=== PATIENT | male | born 1970 | race Asian ===

== ENCOUNTER → 2024-09-30 | Outpatient (CLI) | payer BC, MEDICAID ==
[2024-09-30 14:23] LABS: BASOPHILS % 0.3 % (0.0-2.0); EOSINOPHILS % 2.6 % (0.0-5.0); HEMATOCRIT. 50.1 % (42.0-52.0); HEMOGLOBIN. 16.4 g/dL (14.0-18.0); LYMPHOCYTES % 19.9 % (20.0-50.0); MEAN CORPUSCULAR HEMOGLOBIN 31.3 pg (28.0-32.0); MEAN CORPUSCULAR HGB CONC 32.8 g/dL (31.0-37.0); MEAN CORPUSCULAR VOLUME 95.4 fL (80.0-94.0); MEAN PLATELET VOLUME 9.2 fl (7.4-10.4); MONOCYTES % 10.2 % (2.0-8.0); PLATELET 168 x1000/uL (130-400); RED BLOOD CELL COUNT 5.25 mill/uL (4.7-6.1); RED CELL DISTRIBUTION WIDTH 13.2 % (11.6-14.6); WHITE BLOOD COUNT 6.5 x1000/uL (4.5-11.0)
[2024-09-30 14:26] LABS: CHLORIDE 109 mEq/L (98-107); POTASSIUM 4.5 mEq/L (3.5-5.1); SODIUM 143 mEq/L (136-145)
[2024-09-30 14:27] LABS: CARBON DIOXIDE 27 mEq/L (21-32)
[2024-09-30 14:32] LABS: CREATININE 1.1 mg/dL (0.6-1.3); GLUCOSE 124 mg/dL (70-105); TRIGLYCERIDE 94 mg/dL (0-150); UREA NITROGEN BLOOD 10 mg/dL (9-23); URIC ACID 7.9 mg/dL (3.7-9.2)
[2024-09-30 14:33] LABS: LDL CHOLESTEROL 87 mg/dL (5-100)
[2024-09-30 14:34] LABS: ALANINE AMINOTRANSFERASE 26 IU/L (10-49); ALBUMIN 4.2 g/dL (3.2-4.8); ASPARTATE AMINOTRANSFERASE 26 IU/L (<34); CHOLESTEROL 131 mg/dL (<200); HDL CHOLESTEROL 36 mg/dL (>55)
[2024-09-30 14:35] LABS: BILIRUBIN TOTAL 0.6 mg/dL (0.1-1.0); PROTEIN TOTAL 7.3 g/dL (6.0-8.3)
[2024-09-30 14:36] LABS: T4 FREE 1.13 ng/dL (0.89-1.76)
[2024-09-30 14:37] LABS: THYROID STIMULATING HORMONE 0.62 uIU/mL (0.55-4.78)
[2024-10-04 08:09] LABS: PROSTATE SPECIFIC AG TOTAL 0.5 ng/mL (0.0-4.0); PSA FREE 0.22 ng/mL
== END | disposition home or self-care (01) ==
LOC: LAB 13:35
PROVIDERS: ATTEND Internal Medicine
DX: Z13.0 Encounter for screening for diseases of the blood and blood-forming organs and certain disorders involving the immune mechanism (principal); Z13.1 Encounter for screening for diabetes mellitus; Z13.220 Encounter for screening for lipoid disorders; Z13.5 Encounter for screening for eye and ear disorders; Z13.29 Encounter for screening for other suspected endocrine disorder; E11.9 Type 2 diabetes mellitus without complications; E78.5 Hyperlipidemia, unspecified; H52.10 Myopia, unspecified eye; E66.9 Obesity, unspecified; Z72.0 Tobacco use
CPT/HCPCS: 36415; 80053; 80061; 83036; 84153; 84154; 84439; 84443; 84550; 85025

== ENCOUNTER 2025-01-05 03:42 | Inpatient (IN) | payer BC ==
[~2025-01-05] VITALS: Ht 170.2 cm; Wt 118.6 kg
[2025-01-05 04:44] LABS: BASOPHILS % 0.8 % (0.0-2.0); EOSINOPHILS % 3.3 % (0.0-5.0); HEMATOCRIT. 47.1 % (42.0-52.0); HEMOGLOBIN. 15.5 g/dL (14.0-18.0); LYMPHOCYTES % 34.3 % (20.0-50.0); MEAN CORPUSCULAR HEMOGLOBIN 31.6 pg (28.0-32.0); MEAN CORPUSCULAR HGB CONC 32.9 g/dL (31.0-37.0); MEAN PLATELET VOLUME 9.8 fl (7.4-10.4); MONOCYTES % 5.1 % (2.0-8.0); NEUTROPHILS % 56.5 % (40.0-76.0); PLATELET 190 x1000/uL (130-400); RED CELL DISTRIBUTION WIDTH 14.4 % (11.6-14.6); WHITE BLOOD COUNT 8.4 x1000/uL (4.5-11.0)
[2025-01-05] MEDS: ASPIRIN 81MG TABLET PO ONE (04:59)
[2025-01-05 05:09] LABS: CHLORIDE 103 mEq/L (98-107); POTASSIUM 3.8 mEq/L (3.5-5.1); SODIUM 139 mEq/L (136-145)
[2025-01-05 05:10] LABS: CALCIUM 9.1 mg/dL (8.7-10.4); CARBON DIOXIDE 26 mEq/L (21-32)
[2025-01-05 05:15] LABS: GLUCOSE 226 mg/dL (70-105); TROPONIN I HIGH SENSITIVITY 10 ng/L (3.0-53); UREA NITROGEN BLOOD 26 mg/dL (9-23)
[2025-01-05 05:43] LABS: CREATININE 1.5 mg/dL (0.6-1.3)
[2025-01-05] MEDS: SODIUM CHLORIDE 0.9% 1,000 ML IV ONE (06:19)
[2025-01-05 07:32] LABS: TROPONIN I HIGH SENSITIVITY 8 ng/L (3.0-53)
[2025-01-05 09:51] VITALS: BP 136/89; PULSE 75; RESP 18; TEMP 36.6
[2025-01-05] MEDS ORDERED: CLONIDINE 0.1MG TABLET PO PRN (10:00)
[2025-01-05] MEDS ORDERED: ONDANSETRON HCL 4MG/2ML INJ IV PRN (10:00)
[2025-01-05] MEDS ORDERED: ACETAMINOPHEN 325MG TABLET PO PRN (10:00)
[2025-01-05] MEDS ORDERED: ZOLPIDEM TARTRATE 5MG TABLET PO PRN (10:00)
[2025-01-05] MEDS ORDERED: HYDROCODONE/ACETAMINOPHEN 5/325MG TABLET PO PRN (10:00)
[2025-01-05] MEDS ORDERED: DEXT 5%/0.45% NACL 1000ML 1,000 ML IV SCH (10:00)
[2025-01-05] MEDS ORDERED: IPRATROPIUM/ALBUTEROL 0.5-3(2.5)MG/3ML NEB NEB PRN (10:00)
[2025-01-05] MEDS ORDERED: NALOXONE HCL 0.4MG/ML VIAL IV PRN (10:15)
[2025-01-05 12:00] VITALS: BP 122/84; PULSE 62; RESP 18; TEMP 36.6; O2SAT 98
[2025-01-05 12:05] LABS: *AMPHETAMINES SCREEN URINE NEGATIVE (NEGATIVE)
[2025-01-05 12:06] LABS: *BARBITURATES SCREEN URINE NEGATIVE (NEGATIVE); *BENZODIAZEPINES SCREEN URINE NEGATIVE (NEGATIVE); *COCAINE SCREEN URINE NEGATIVE (NEGATIVE); CANNABINOID URINE SCREEN NEGATIVE (NEGATIVE); ECSTASY MDMA SCREEN URINE NEGATIVE (NEGATIVE); METHADONE URINE SCREEN NEGATIVE (NEGATIVE); OPIATES URINE SCREEN NEGATIVE (NEGATIVE); PHENCYCLIDINE URINE SCREEN NEGATIVE (NEGATIVE)
[2025-01-05] MEDS: SODIUM CHLORIDE 0.9% 1,000 ML IV SCH (12:34)
[2025-01-05 16:00] VITALS: BP 121/80; PULSE 89; RESP 18; TEMP 36.2; O2SAT 98
[2025-01-05 17:44] VITALS: BP_SYST 114; BP_SYST 123; BP_SYST 124; BP_DIAS 67; BP_DIAS 68; BP_DIAS 70; PULSE 84; RESP 18; O2SAT 98
[2025-01-05 20:00] VITALS: BP 133/69; PULSE 69; RESP 20; TEMP 36.5; O2SAT 95
[2025-01-05] MEDS: ENOXAPARIN 30MG/0.3ML SYR SUBCUT SCH (20:40)
[2025-01-05 21:31] LABS: TROPONIN I HIGH SENSITIVITY 9 ng/L (3.0-53)
[2025-01-06] VITALS (7 sets, daily range): BP systolic 124–139; BP diastolic 74–100; PULSE 63–95; RESP 18–19; TEMP 36.4–36.6; O2SAT 96–100
[2025-01-06 07:15] LABS: CHLORIDE 108 mEq/L (98-107); POTASSIUM 4.2 mEq/L (3.5-5.1); SODIUM 141 mEq/L (136-145)
[2025-01-06 07:16] LABS: BASOPHILS % 0.3 % (0.0-2.0); CALCIUM 8.8 mg/dL (8.7-10.4); CARBON DIOXIDE 27 mEq/L (21-32); EOSINOPHILS % 3.8 % (0.0-5.0); HEMATOCRIT. 46.3 % (42.0-52.0); HEMOGLOBIN. 15.6 g/dL (14.0-18.0); LYMPHOCYTES % 36.4 % (20.0-50.0); MEAN CORPUSCULAR HEMOGLOBIN 32.2 pg (28.0-32.0); MEAN CORPUSCULAR HGB CONC 33.7 g/dL (31.0-37.0); MEAN CORPUSCULAR VOLUME 95.4 fL (80.0-94.0); MEAN PLATELET VOLUME 9.6 fl (7.4-10.4); NEUTROPHILS % 53.5 % (40.0-76.0); PLATELET 178 x1000/uL (130-400); RED BLOOD CELL COUNT 4.86 mill/uL (4.7-6.1); RED CELL DISTRIBUTION WIDTH 14.2 % (11.6-14.6); WHITE BLOOD COUNT 6.3 x1000/uL (4.5-11.0)
[2025-01-06 07:21] LABS: GLUCOSE 153 mg/dL (70-105); TROPONIN I HIGH SENSITIVITY 12 ng/L (3.0-53); UREA NITROGEN BLOOD 18 mg/dL (9-23)
[2025-01-06] MEDS: PANTOPRAZOLE SODIUM 40 MG/VIAL IV SCH (09:12)
== END 2025-01-06 18:38 | disposition home or self-care (01) | DRG 74 ==
LOC: ER 03:42 → EDBEDREQ 04:18 → 8WST 05:48 → EDBEDREQ 06:04
PROVIDERS: ADMIT Internal Medicine; ATTEND Internal Medicine
DX: G90.89 Other disorders of autonomic nervous system (principal); N17.9 Acute kidney failure, unspecified; I10 Essential (primary) hypertension; E78.5 Hyperlipidemia, unspecified; E11.9 Type 2 diabetes mellitus without complications; I44.4 Left anterior fascicular block; Z86.73 Personal history of transient ischemic attack (TIA), and cerebral infarction without residual deficits; Z87.891 Personal history of nicotine dependence
CPT/HCPCS: 36415; 71045; 80048; 80305; 84484; 85025; 85379; 93005; 93880; 93970; 99285; A4606; J1650; J2470; J7030